=== PATIENT | female | born 1955 | race Caucasian/White ===

== ENCOUNTER 2016-08-26 13:38 | Emergency (ER) | payer OTHER ==
[~2016-08-26] VITALS: Wt 65.0 kg
[~2016-08-26 13:38] MED LIST: ASPI-535 PO; CLON-379 PO; GLIP-95 PO; LISI20TA11 PO; OCUVITE PO; TRAM50TA2 PO; ZINC220C10 PO; ZOC20 PO
[2016-08-26] MEDS ORDERED: AZIT250T94 PO (15:52)
[2016-08-26] MEDS ORDERED: IBUP-1542 PO (15:53)
[2016-08-26] MEDS ORDERED: ACET500C5 PO (15:53)
[2016-08-26] MEDS ORDERED: CETI10CA PO (15:53)
[2016-08-26] MEDS ORDERED: D-ME473S18 PO (15:57)
--- NOTE | 2016-08-26 16:01 | ERD ---
ER Documentation Chief Complaint Date/Time DATE: 08/26/16 TIME: 15:57 Chief Complaint sore throat with cough for the past few days. no sob noted. HPI This is a 61-year-old female who presents to the emergency department today complaining of cough, sore throat and phlegm for the past week. Patient states that she has pain with swallowing. Denies any fevers or chills. States she has taken Robitussin for the cough with no improvement in symptoms. ROS All systems reviewed and are negative except as per history of present illness. Medications Home Meds Active Scripts Dextromethorphan Hb-Promethazine Hcl (Promethazine DM Syrup) 473 Ml Syrup, 5 ML PO Q6H Y for COUGH, #4 OZ Prov:GINNA CONNOR PA-C 08/26/16 Acetaminophen* (Tylophen*) 500 Mg Capsule, 1 CAP PO Q6H Y for PAIN AND OR ELEVATED TEMP, #30 CAP Prov:GINNA CONNOR PA-C 08/26/16 Ibuprofen* (Motrin*) 600 Mg Tab, 600 MG PO Q6, #30 TAB Prov:GINNA CONNOR PA-C 08/26/16 Cetirizine Hcl* (Zyrtec*) 10 Mg Capsule, 10 MG PO DAILY, #14 TAB.CHEW Prov:GINNA CONNOR PA-C 08/26/16 Azithromycin* (Zithromax*) 250 Mg Tablet, 250 MG PO .ZPACK DIRECTED, #6 TAB TAKE 500 MG (2 TABS) THE FIRST DAY THEN 250 MG (1 TAB) DAYS 2-5 Prov:GINNA CONNOR PA-C 08/26/16 Clonidine Hcl* (Clonidine Hcl*) 0.1 Mg Tab, 0.1 MG PO TID, #20 Take one (1) tablet PO if systolic blood pressure >170mmHG no more then three times daily Prov:ENOC THOMAS 05/06/15 Zinc Sulfate* (Zinc Sulfate*) 220 ( 50 )Mg Capsule, 220 MG PO DAILY, #30 CAP Prov:ENOC THOMAS 05/06/15 Beta Carotene (A) W-C & E/Min* (Ocuvite*) 1 Tab Tab, 1 TAB PO DAILY, #30 TAB Prov:ENOC THOMAS 05/06/15 Tramadol HCl (Tramadol HCl) 50 Mg Tab, 50 MG PO Q4 Y for PAIN, #20 TAB Prov:MAURIZIO BLOUNT 03/13/15 Reported Medications Glipizide* (Glipizide*) 10 Mg Tablet, 10 MG PO QAM, TAB 05/06/15 Glipizide* (Glipizide*) 10 Mg Tablet, 10 MG PO DAILY, TAB 05/06/15 Simvastatin (Simvastatin) 20 Mg Tablet, 20 MG PO HS, TAB 01/17/14 Lisinopril* (Lisinopril*) 20 Mg Tablet, 20 MG PO DAILY, TAB 01/17/14 Aspirin Ec (Aspir 81) 81 Mg Tablet.dr, 81 MG PO 01/17/14 Allergies Allergies: Coded Allergies: No Known Allergy (Unverified , 03/13/15) PMhx/Soc History of Surgery: No Anesthesia Reaction: No Hx Neurological Disorder: No Hx Respiratory Disorders: No Hx Cardiac Disorders: Yes (HIGH CHOLESTEROL, HTN) Hx Psychiatric Problems: No Hx Miscellaneous Medical Probl: Yes (DM) Hx Alcohol Use: No Hx Substance Use: No Hx Tobacco Use: No Physical Exam Vitals Vital Signs Date Time Temp Pulse Resp B/P Pulse Ox O2 Delivery O2 Flow Rate FiO2 08/26/16 13:40 98.5 100 20 160/75 98 Physical Exam Const: No acute distress Head: Atraumatic Eyes: Normal Conjunctiva ENT: Ears TMs normal. Nose with mild clear drainage. Throat with erythema. No exudate. Petechiae soft palate. Neck: Full range of motion..~ No meningismus. Resp: Clear to auscultation bilaterally no absent breath sounds. No wheezing Cardio: Regular rate and rhythm, no murmurs Abd: Soft, non tender, non distended. Normal bowel sounds Skin: No petechiae or rashes Neur: Awake and alert Psych: Normal Mood and Affect Procedures/MDM This is a 7-year-old female presents to the emergency department today complaining of cough and sore throat for the past week. On physical exam patient had some petechiae on the posterior aspect of her pharynx and therefore did had some concern for possible strep pharyngitis although there is no tonsillar exudate patient is afebrile at this time. Lung exam is benign. I do not feel the patient requires a chest x-ray. Her oxygen saturation is 98% respirations are 20. Patient symptoms at this time is consistent with URI likely viral however given her throat exam I will give the patient a prescription for azithromycin to treat possible strep pharyngitis as well any possible bacterial infection in her lungs. Furthermore patient has multiple comorbidities therefore I feel that antibiotics are appropriate this time especially given the length and duration of her symptoms.. I have low suspicion for , peritonsillar abscess, retropharyngeal abscess, otitis media, , sinusitis, abscess, meningitis, sepsis, or other acute infectious bacterial process. Patient will be given a prescription for azithromycin, Phenergan, Tylenol, Motrin and Zyrtec. At this time the patient is stable for discharge and outpatient management. They should follow up with their PCP in the next 1-2. They may return to the emergency department sooner if symptoms persist or worsen. Patient understood and agreed with the plan. Departure Diagnosis: Primary Impression: URI (upper respiratory infection) URI type: unspecified URI Qualified Code: J06.9 - Upper respiratory tract infection, unspecified type Condition: Fair Patient Instructions: Self-Care for Sore Throats, Preventing Common Respiratory Infections Additional Instructions: Llame al doctor MAANA y malcolm nidia LAURA PARA DENTRO DE 1-2 SHERIDAN.Dgale a la secretaria que nosotros le instruimos hacer esta laura.Avise o llame si thorpe condicin se empeora antes de la laura. Regresa aqui si peor o no mejor. Take Tylenol or Motrin for pain or fever Take antibiotics as prescribed Take promethazine and Zyrtec for cough GINNA CONNOR PA-C Aug 26, 2016 16:01
== END 2016-08-26 16:11 | disposition home or self-care (01) ==
LOC: FTE 13:38
DX: J06.9 Acute upper respiratory infection, unspecified (principal); I10 Essential (primary) hypertension; E11.9 Type 2 diabetes mellitus without complications; Z79.84 Long term (current) use of oral hypoglycemic drugs; Z79.82 Long term (current) use of aspirin
CPT/HCPCS: 99284

== ENCOUNTER 2017-05-06 16:33 | Emergency (ER) | payer OTHER ==
[~2017-05-06] VITALS: Wt 53.2 kg
[~2017-05-06 16:33] MED LIST changes: +ACET500C5 PO; +AZIT250T94 PO; +CETI10CA PO; +D-ME473S18 PO; +IBUP-1542 PO; +SIMV20TA2 PO; -ZOC20 PO
[2017-05-06 16:35] VITALS: Wt 53.2 kg
[2017-05-06] MEDS ORDERED: SOD CHLORIDE 0.9% 1,000 ML IV STA (16:58)
[2017-05-06] MEDS ORDERED: ONDANSETRON 4 MG INJ IV STA (16:58)
[2017-05-06] MEDS ORDERED: morphine 4 MG/ML VIAL IV STA (16:58)
[2017-05-06 17:52] VITALS: BP 188/82; PULSE 89; RESP 18
--- NOTE | 2017-05-06 18:33 | RADRPT ---
PROCEDURE: CT Abdomen and Pelvis without contrast. CLINICAL INDICATION: Abdominal and pelvic pain. Left flank pain. TECHNIQUE: CT scan of the abdomen and pelvis without contrast was performed. Coronal and sagittal reformatted images were obtained from the axial source images. Images were reviewed on a [employer] PACS workstation. Total exam DLP is 369.66 mGy-cm. CTDIvol is 7.61 mGy. One or more of the fo llowing dose reduction techniques were used: Automated exposure control, adjustment of the mA and/or kV according to patient size, use of iterative reconstruction technique. COMPARISON: None. FINDINGS: The lung bases are normal. There is no pleural effusion. The liver is normal in size and attenuation. There is no focal hepatic lesion. The gallbladder and bile ducts are normal. The spleen is normal in size. There is no focal splenic lesion. Both adrenals are normal with no enlargement or mass. The pancreas is unremarkable with no mass or evidence of pancreatitis. The right kidney is markedly atrophic measuring 1.0 x 1.7 x 4.0 cm. The left kidney measures 12.2 cm in length. There is moderate left hydroureteronephrosis with no obstructing lesion visualized. The left kidney is otherwise normal with no mass or calculus. The abdominal aorta is not dilated. There is calcification in the aorta consistent with atherosclero sis. There is no retroperitoneal lymphadenopathy or mass. There is no pelvic lymphadenopathy or mass. The bladder is distended measuring approximately 500 ml. The distal ureters are otherwise normal. The periappendiceal region is unremarkable with no evidence of appendicitis. The bowel and mesentery are normal. There is no free fluid or free gas. There is mild degenerative change of the spine. The osseous structures are otherwise unremarkable wi th no fracture or lytic lesion. IMPRESSION: 1. Markedly atrophic right kidney, likely congenital. 2. Moderate left hydroureteronephrosis with no obstructing lesion visualized. 3. Atherosclerosis. 4. Distended urinary bladder measuring approximately 500 ml. 5. Mild degenerative changes of the spine. 6. Otherwise unremarkable CT scan of the abdomen and pelvis. Call report: A call report of the findings was made to Dr. Mirza on 05/06/2017 at 1830 hours. RPTAT: QQ .Siddhartha Larson MD, MD Date Time Electronically viewed and signed by .Siddhartha Larson MD, on 05/06/2017 18:33 .R/
[2017-05-06] MEDS ORDERED: HYDR-906 PO (18:36)
[2017-05-06] MEDS ORDERED: ONDA4TAB14 PO (18:36)
[2017-05-06] MEDS ORDERED: NICARDipine HCL 30 MG CAPSULE PO ONE (19:00)
--- NOTE | 2017-05-06 20:46 | ERD ---
ER Documentation Chief Complaint Chief Complaint L. FLANK PAIN HPI Patient is a 62-year-old female with hypertension, diabetes, and high cholesterol who presents with left-sided abdominal pain. The patient has had 2 weeks of left-sided flank pain and abdominal pain. The pain is constant. She has no fevers. She had pain with urination. She has had no treatment as of yet. Upon review of old medical records this is the patient's eighth visit to the ER since 2013. She does have a primary doctor. ROS All systems reviewed and are negative except as per history of present illness. Medications Home Meds Active Scripts Ondansetron (Ondansetron Odt) 4 Mg Tab.rapdis, 4 MG PO Q6H Y for NAUSEA AND/OR VOMITING, #10 TAB Prov:TODD WIN MD 05/06/17 Hydrocodone/Acetaminophen ([place] 5-325 Tablet) 1 Each Tablet, 1 TAB PO Q6H Y for PAIN, #7 TAB Prov:TODD WIN MD 05/06/17 Dextromethorphan Hb-Promethazine Hcl (Promethazine DM Syrup) 473 Ml Syrup, 5 ML PO Q6H Y for COUGH, #4 OZ Prov:GINNA CONNOR PA-C 08/26/16 Acetaminophen* (Tylophen*) 500 Mg Capsule, 1 CAP PO Q6H Y for PAIN AND OR ELEVATED TEMP, #30 CAP Prov:GINNA CONNOR PA-C 08/26/16 Ibuprofen* (Motrin*) 600 Mg Tab, 600 MG PO Q6, #30 TAB Prov:GINNA CONNOR PA-C 08/26/16 Cetirizine Hcl* (Zyrtec*) 10 Mg Capsule, 10 MG PO DAILY, #14 TAB.CHEW Prov:GINNA CONNOR PA-C 08/26/16 Azithromycin* (Zithromax*) 250 Mg Tablet, 250 MG PO .THEODORE DIRECTED, #6 TAB TAKE 500 MG (2 TABS) THE FIRST DAY THEN 250 MG (1 TAB) DAYS 2-5 Prov:GINNA CONNORC 08/26/16 Clonidine Hcl* (Clonidine Hcl*) 0.1 Mg Tab, 0.1 MG PO TID, #20 Take one (1) tablet PO if systolic blood pressure >170mmHG no more then three times daily Prov:ENOC THOMAS 05/06/15 Zinc Sulfate* (Zinc Sulfate*) 220 ( 50 )Mg Capsule, 220 MG PO DAILY, #30 CAP Prov:ENOC THOMAS 05/06/15 Beta Carotene (A) W-C & E/Min* (Ocuvite*) 1 Tab Tab, 1 TAB PO DAILY, #30 TAB Prov:ENOC THOMAS 05/06/15 Tramadol HCl (Tramadol HCl) 50 Mg Tab, 50 MG PO Q4 Y for PAIN, #20 TAB Prov:MAURIZIO BLOUNT 03/13/15 Reported Medications Glipizide* (Glipizide*) 10 Mg Tablet, 10 MG PO QAM, TAB 05/06/15 Glipizide* (Glipizide*) 10 Mg Tablet, 10 MG PO DAILY, TAB 05/06/15 Simvastatin (Simvastatin) 20 Mg Tablet, 20 MG PO HS, TAB 01/17/14 Lisinopril* (Lisinopril*) 20 Mg Tablet, 20 MG PO DAILY, TAB 01/17/14 Aspirin Ec (Aspir 81) 81 Mg Tablet.dr, 81 MG PO 01/17/14 Allergies Allergies: Coded Allergies: No Known Allergy (Unverified , 03/13/15) PMhx/Soc History of Surgery: No Anesthesia Reaction: No Hx Neurological Disorder: No Hx Respiratory Disorders: No Hx Cardiac Disorders: Yes (HIGH CHOLESTEROL, HTN) Hx Psychiatric Problems: No Hx Miscellaneous Medical Probl: Yes (DM ) Hx Alcohol Use: No Hx Substance Use: No Hx Tobacco Use: No Smoking Status: Never smoker FmHx Family History: diabetes Physical Exam Vitals Vital Signs Date Time Temp Pulse Resp B/P Pulse Ox O2 Delivery O2 Flow Rate FiO2 05/06/17 17:52 89 18 188/82 99 Room Air 05/06/17 16:35 98.2 82 20 201/88 98 Physical Exam Const: Moderate distress secondary to pain Head: Atraumatic Eyes: Normal Conjunctiva ENT: Normal External Ears, Nose and Mouth. Neck: Full range of motion..~ No meningismus. Resp: Clear to auscultation bilaterally Cardio: Regular rate and rhythm, no murmurs Abd: Soft, non tender, non distended. Normal bowel sounds Skin: No petechiae or rashes Back: No midline or flank tenderness Ext: No cyanosis, or edema Neur: Awake and alert Psych: Normal Mood and Affect Result Diagram: 05/06/17171405/06/171714 Results 24 hrs Laboratory Tests Test 05/06/17 17:15 White Blood Count 6.910^3/ul Red Blood Count 4.1210^6/ul Hemoglobin 12.5g/dl Hematocrit 37.2% Mean Corpuscular Volume 90.3fl Mean Corpuscular Hemoglobin 30.3pg Mean Corpuscular Hemoglobin Concent 33.6g/dl Red Cell Distribution Width 12.5% Platelet Count 74599^3/UL Mean Platelet Volume 10.9fl Neutrophils % 54.7% Lymphocytes % 35.3% Monocytes % 7.7% Eosinophils % 1.7% Basophils % 0.3% Nucleated Red Blood Cells % 0.0/100WBC Neutrophils # 3.810^3/ul Lymphocytes # 2.410^3/ul Monocytes # 0.510^3/ul Eosinophils # 0.110^3/ul Basophils # 0.010^3/ul Nucleated Red Blood Cells # 0.010^3/ul Urine Color COLORLESS Urine Clarity CLEAR Urine pH 8.0 Urine Specific Petros 1.003 Urine Ketones NEGATIVEmg/dL Urine Nitrite NEGATIVEmg/dL Urine Bilirubin NEGATIVEmg/dL Urine Urobilinogen NEGATIVEmg/dL Urine Leukocyte Esterase TRACELeu/ul Urine Microscopic RBC 0/HPF Urine Microscopic WBC 2/HPF Urine Hemoglobin NEGATIVEmg/dL Urine Glucose NEGATIVEmg/dL Urine Total Protein NEGATIVEmg/dl Sodium Level 140mmol/L Potassium Level 4.0mmol/L Chloride Level 102mmol/L Carbon Dioxide Level 28mmol/L Anion Gap 14 Blood Urea Nitrogen 14mg/dl Creatinine 0.61mg/dl Glucose Level 89mg/dl Calcium Level 9.7mg/dl Total Bilirubin 0.1mg/dl Direct Bilirubin 0.00mg/dl Indirect Bilirubin 0.1mg/dl Aspartate Amino Transf (AST/SGOT) 25IU/L Alanine Aminotransferase (ALT/SGPT) 32IU/L Alkaline Phosphatase 120IU/L Total Protein 7.8g/dl Albumin 4.5g/dl Globulin 3.30g/dl Albumin/Globulin Ratio 1.36 Lipase 71U/L Current Medications Medications (Trade) Dose Ordered Sig/Dano Route PRN Reason Start Time Stop Time Status Last Admin Dose Admin Sodium Chloride (NS) 1,000 ml @ 1,000 mls/hr Q1H STAT IV 05/06/17 16:58 05/06/17 17:57 DC 05/06/17 17:11 Morphine Sulfate (morphine) 4 mg ONCE STAT IV 05/06/17 16:58 05/06/17 16:59 DC 05/06/17 17:11 Ondansetron HCl (Zofran Inj) 4 mg ONCE STAT IV 05/06/17 16:58 05/06/17 16:59 DC 05/06/17 17:11 Nicardipine HCl (Cardene) 30 mg ONCE ONCE PO 05/06/17 19:00 05/06/17 19:01 DC 05/06/17 18:53 Procedures/MDM CT abdomen pelvis shows enlarged bladder with approximately 500 mL of urine per radiology. Patient is a 62-year-old female who presents with abdominal pain and flank pain. She has no sign of kidney stone or bowel obstruction on CT scan however she does have a enlarged bladder which is likely the cause of her symptoms. Urinalysis shows no signs of infection. I doubt kidney stone or bowel obstruction. Patient feels better after a Garcia catheter was placed. The Garcia catheter will be placed to a leg bag and she will need to follow-up with her primary doctor within 24-48 hours for removal. She can return sooner for any worsening symptoms. The patient understands the plan and is okay for discharge at this time. She was given copies of the laboratory studies and CT scan results prior to discharge. Departure Diagnosis: Primary Impression: Urinary retention Additional Impression: Flank pain Condition: Fair Patient Instructions: Flank Pain, Uncertain Cause, Urinary Retention, Female Referrals: Your doctor Additional Instructions: Llame al doctor MAANA y malcolm nidia LAURA PARA DENTRO DE 1-2 SHERIDAN.Dgale a la secretaria que nosotros le instruimos hacer esta laura.Avise o llame si thorpe condicin se empeora antes de la laura. Regresa aqui si peor o no mejor. TODD WIN MD May 06, 2017 20:46
== END 2017-05-06 19:04 | disposition home or self-care (01) ==
LOC: E/R 16:33
DX: R33.9 Retention of urine, unspecified (principal); I10 Essential (primary) hypertension; E11.9 Type 2 diabetes mellitus without complications; Z79.84 Long term (current) use of oral hypoglycemic drugs; Z79.82 Long term (current) use of aspirin
CPT/HCPCS: 36415; 74176; 80053; 81001; 83690; 85025; 96374; 96375; J2270; J2405; J7030; Z7502; Z7610

== ENCOUNTER 2017-05-11 08:48 | Emergency (ER) | payer OTHER ==
[~2017-05-11] VITALS: Wt 51.8 kg
[~2017-05-11 08:48] MED LIST changes: +HYDR-906 PO; +ONDA4TAB14 PO
[2017-05-11 08:51] VITALS: Wt 51.8 kg
--- NOTE | 2017-05-27 18:49 | ERD ---
ER Documentation Chief Complaint Chief Complaint indwelling fc discomfort HPI This is a 62-year-old female here for Garcia catheter removal. Patient says she has a Garcia catheter placed 3 days ago and is feeling uncomfortable and she wants it removed. She says the catheter was placed because she was having some difficulty urinating but no infection. The patient says she has no abdominal pain she is not voiding around the catheter. No blood in the catheter bag. She would like to have it removed at this point ROS All systems reviewed and are negative except as per history of present illness. Medications Home Meds Active Scripts Ondansetron (Ondansetron Odt) 4 Mg Tab.rapdis, 4 MG PO Q6H Y for NAUSEA AND/OR VOMITING, #10 TAB Prov:TODD WIN MD 05/06/17 Hydrocodone/Acetaminophen ([place] 5-325 Tablet) 1 Each Tablet, 1 TAB PO Q6H Y for PAIN, #7 TAB Prov:TODD WIN MD 05/06/17 Dextromethorphan Hb-Promethazine Hcl (Promethazine DM Syrup) 473 Ml Syrup, 5 ML PO Q6H Y for COUGH, #4 OZ Prov:GINNA CONNOR PA-C 08/26/16 Acetaminophen* (Tylophen*) 500 Mg Capsule, 1 CAP PO Q6H Y for PAIN AND OR ELEVATED TEMP, #30 CAP Prov:GINNA CONNOR PA-C 08/26/16 Ibuprofen* (Motrin*) 600 Mg Tab, 600 MG PO Q6, #30 TAB Prov:GINNA CONNOR PA-C 08/26/16 Cetirizine Hcl* (Zyrtec*) 10 Mg Capsule, 10 MG PO DAILY, #14 TAB.CHEW Prov:GINNA CONNOR PA-C 08/26/16 Azithromycin* (Zithromax*) 250 Mg Tablet, 250 MG PO .THEODORE DIRECTED, #6 TAB TAKE 500 MG (2 TABS) THE FIRST DAY THEN 250 MG (1 TAB) DAYS 2-5 Prov:GINNA CONNORC 08/26/16 Clonidine Hcl* (Clonidine Hcl*) 0.1 Mg Tab, 0.1 MG PO TID, #20 Take one (1) tablet PO if systolic blood pressure >170mmHG no more then three times daily Prov:ENOC THOMAS 05/06/15 Zinc Sulfate* (Zinc Sulfate*) 220 ( 50 )Mg Capsule, 220 MG PO DAILY, #30 CAP Prov:ENOC THOMAS 05/06/15 Beta Carotene (A) W-C & E/Min* (Ocuvite*) 1 Tab Tab, 1 TAB PO DAILY, #30 TAB Prov:ENOC THOMAS 05/06/15 Tramadol HCl (Tramadol HCl) 50 Mg Tab, 50 MG PO Q4 Y for PAIN, #20 TAB Prov:MAURIZIO BLOUNT 03/13/15 Reported Medications Glipizide* (Glipizide*) 10 Mg Tablet, 10 MG PO QAM, TAB 05/06/15 Glipizide* (Glipizide*) 10 Mg Tablet, 10 MG PO DAILY, TAB 05/06/15 Simvastatin (Simvastatin) 20 Mg Tablet, 20 MG PO HS, TAB 01/17/14 Lisinopril* (Lisinopril*) 20 Mg Tablet, 20 MG PO DAILY, TAB 01/17/14 Aspirin Ec (Aspir 81) 81 Mg Tablet.dr, 81 MG PO 01/17/14 Allergies Allergies: Coded Allergies: No Known Allergy (Unverified , 03/13/15) PMhx/Soc History of Surgery: No Anesthesia Reaction: No Hx Neurological Disorder: No Hx Respiratory Disorders: No Hx Cardiac Disorders: Yes (HIGH CHOLESTEROL, HTN) Hx Psychiatric Problems: No Hx Miscellaneous Medical Probl: Yes (DM,urine retention) Hx Alcohol Use: No Hx Substance Use: No Hx Tobacco Use: No FmHx Family History: No coronary disease Physical Exam Physical Exam Const: Well-developed, well-nourished Head: Atraumatic, normocephalic Eyes: Normal Conjunctiva, PERRLA, EOMI, normal sclera, no nystagmus ENT: Normal External Ears, Nose and Mouth, moist mucus membranes. Neck: Full range of motion. No meningismus, no lymphadenopathy. Resp: Clear to auscultation bilaterally, no wheezing, rhonchi, rales Cardio: Regular rate and rhythm, no murmurs, S1 S2 present Abd: Soft, non tender x 4, non distended. Normal bowel sounds, no guarding or rebound, no pulsitile abdominal masses or bruits, Garcia catheter intact with leg bag Skin: No petechiae or rashes, no ecchymosis , no maculopapular rash Back: No midline or flank tenderness Ext: No cyanosis, or edema, FROM x 4, normal inspection, neurovascularly intact x 4 Neur: Awake and alert, STR 5/5 x 4, sensation intact x 4, no focal findings, cerebellum intact Psych: Normal Mood and Affect Procedures/MDM We will remove Garcia catheter. Told signs and symptoms to return to watch for for urinary retention Departure Diagnosis: Primary Impression: Encounter for Garcia catheter removal Condition: Stable Patient Instructions: Garcia Catheter Removal ETHEL OBRIEN DO May 27, 2017 18:48
== END 2017-05-11 10:37 | disposition home or self-care (01) ==
LOC: FTE 08:48
DX: Z46.6 Encounter for fitting and adjustment of urinary device (principal); I10 Essential (primary) hypertension; E11.9 Type 2 diabetes mellitus without complications; Z79.82 Long term (current) use of aspirin; Z79.84 Long term (current) use of oral hypoglycemic drugs
CPT/HCPCS: 99283

== ENCOUNTER 2017-07-26 08:47 | Emergency (ER) | END 2017-07-26 13:55 | disposition home or self-care (01) ==

== ENCOUNTER 2017-12-04 21:00 | Emergency (ER) | END 2017-12-05 02:35 | disposition home or self-care (01) ==

== ENCOUNTER 2018-07-19 15:01 | Emergency (ER) | payer OTHER ==
[~2018-07-19] VITALS: Ht 167.6 cm; Wt 53.9 kg
[~2018-07-19 15:01] MED LIST changes: +AZIT250T PO; -AZIT250T94 PO; +BENZ-6 PO; -GLIP-95 PO; +GLIP10TA14 PO; +HYDR-4011 PO; -HYDR-906 PO; +LISI-471 PO; -LISI20TA11 PO; +NAPR-985 PO
[2018-07-19 15:27] VITALS: Ht 167.6 cm; Wt 53.9 kg
[2018-07-19] MEDS ORDERED: NPH10OT RIGHT EAR (16:48)
[2018-07-19] MEDS ORDERED: CARB15DR50 RIGHT EAR (16:48)
[2018-07-19 16:51] VITALS: BP 242/105; PULSE 97; RESP 20
[2018-07-19] MEDS ORDERED: NICARDipine HCL 30 MG CAPSULE PO ONE (17:00)
--- NOTE | 2018-07-19 18:47 | ERD ---
ER Documentation Chief Complaint Chief Complaint Complains of bilateral ear pain and elevated BP Hx of HTN HPI Patient is a 63-year-old female who presents saying "my right ear is clogged". She says that she has had this feeling for the past 3 days. She denies pain or fever. She tried some type of drop but she does not know what it was. ROS All systems reviewed and are negative except as per history of present illness. Medications Home Meds Active Scripts Carbamide Peroxide* (Debrox*) 6.5% - 15 Ml Drops, 10 DROP RIGHT EAR BID, #1 BOTTLE Prov:TODD WIN MD 07/19/18 Neomycin/Polymyxin/Hydrocort* (Cortisporin* Otic) 10 Ml Susp, 4 DROP RIGHT EAR QID for 7 Days, EA Prov:TODD WIN MD 07/19/18 Benzonatate* (Tessalon Perle*) 100 Mg Capsule, 100 MG PO Q8H PRN for COUGH, #20 CAP Prov:GUADALUPE PALMER PA-C 12/05/17 Cetirizine Hcl* (Zyrtec*) 10 Mg Capsule, 10 MG PO DAILY, #30 TAB.CHEW Prov:GUADALUPE PALMER PA-C 12/05/17 Azithromycin* (Zithromax*) 250 Mg Tablet, 250 MG PO .AngelPACK DIRECTED, #6 TAB TAKE 500 MG (2 TABS) THE FIRST DAY THEN 250 MG (1 TAB) DAYS 2-5 Prov:GUADALUPE PALMER PA-C 12/05/17 Naproxen* (Naprosyn*) 500 Mg Tablet, 500 MG PO BID PRN for PAIN AND/OR INFLAMMATION, #30 TAB Prov:JOSEPH TREJO 07/26/17 Ondansetron (Ondansetron Odt) 4 Mg Tab.rapdis, 4 MG PO Q6H PRN for NAUSEA AND/OR VOMITING, #10 TAB Prov:TODD WIN MD 05/06/17 Hydrocodone/Acetaminophen ([place] 5-325 Tablet) 1 Each Tablet, 1 TAB PO Q6H PRN for PAIN, #7 TAB Prov:TODD WIN MD 05/06/17 Dextromethorphan Hb-Promethazine Hcl (Promethazine DM Syrup) 473 Ml Syrup, 5 ML PO Q6H PRN for COUGH, #4 OZ Prov:GINNA CONNOR PA-C 08/26/16 Acetaminophen* (Tylophen*) 500 Mg Capsule, 1 CAP PO Q6H PRN for PAIN AND OR E LEVATED TEMP, #30 CAP Prov:GINNA CONNOR PA-C 08/26/16 Ibuprofen* (Motrin*) 600 Mg Tab, 600 MG PO Q6, #30 TAB Prov:GINNA CONNOR PA-C 08/26/16 Cetirizine Hcl* (Zyrtec*) 10 Mg Capsule, 10 MG PO DAILY, #14 TAB.CHEW Prov:GINNA CONNOR PA-C 08/26/16 Azithromycin* (Zithromax*) 250 Mg Tablet, 250 MG PO .ZPACK DIRECTED, #6 TAB TAKE 500 MG (2 TABS) THE FIRST DAY THEN 250 MG (1 TAB) DAYS 2-5 Prov:GINNA CONNOR PA-C 08/26/16 Clonidine Hcl* (Clonidine Hcl*) 0.1 Mg Tab, 0.1 MG PO TID, #20 Take one (1) tablet PO if systolic blood pressure >170mmHG no more then three times daily Prov:ENOC THOMAS MD 05/06/15 Zinc Sulfate* (Zinc Sulfate*) 220 ( 50 )Mg Capsule, 220 MG PO DAILY, #30 CAP Prov:ENOC THOMAS MD 05/06/15 Beta Carotene (A) W-C & E/Min* (Ocuvite*) 1 Tab Tab, 1 TAB PO DAILY, #30 TAB Prov:ENOC THOMAS MD 05/06/15 Tramadol HCl (Tramadol HCl) 50 Mg Tab, 50 MG PO Q4 PRN for PAIN, #20 TAB Prov:MAURIZIO BLOUNT 03/13/15 Reported Medications Glipizide* (Glipizide*) 10 Mg Tablet, 10 MG PO QAM, TAB 05/06/15 Glipizide* (Glipizide*) 10 Mg Tablet, 10 MG PO DAILY, TAB 05/06/15 Simvastatin (Simvastatin) 20 Mg Tablet, 20 MG PO HS, TAB 7/22/14 Lisinopril* (Lisinopril*) 20 Mg Tablet, 20 MG PO DAILY, TAB 01/17/14 Aspirin Ec (Aspir 81) 81 Mg Tablet.dr, 81 MG PO 01/17/14 Allergies Allergies: Coded Allergies: No Known Allergy (Unverified , 12/05/17) PMhx/Soc History of Surgery: No Anesthesia Reaction: No Hx Neurological Disorder: No Hx Respiratory Disorders: No Hx Cardiac Disorders: Yes (HIGH CHOLESTEROL, HTN) Hx Psychiatric Problems: No Hx Miscellaneous Medical Probl: Yes (DM,urine retention) Hx Alcohol Use: No Hx Substance Use: No Hx Tobacco Use: No Smoking Status: Never smoker FmHx Family History: No diabetes Physical Exam Vitals Vital Signs Date Temp Pulse Resp B/P (MAP) Pulse Ox O2 O2 Flow FiO2 Time Delivery Rate 07/19/18 98.0 97 20 242/105 99 Room Air 16:51 (150) 07/19/18 98.0 95 20 250/112 98 15:27 (158) Physical Exam Const: No acute distress Head: Atraumatic Eyes: Normal Conjunctiva ENT: Cerumen obscures the right side ear canal and tympanic membrane, left tympanic membrane is normal Neck: Full range of motion. No meningismus. Resp: Clear to auscultation bilaterally Cardio: Regular rate and rhythm, no murmurs Abd: Soft, non tender, non distended. Normal bowel sounds Skin: No petechiae or rashes Back: No midline or flank tenderness Ext: No cyanosis, or edema Neur: Awake and alert Psych: Normal Mood and Affect Results 24 hrs Current Medications Medications Dose Sig/Dano Start Time Status Last (Trade) Ordered Route PRN Stop Time Admin Dose Reason Admin Nicardipine 30 mg ONCE ONCE 07/19/18 DC 07/19/18 HCl PO 17:00 16:50 (Cardene) 07/19/18 17:00 Procedures/MDM Patient is a 63-year-old female who presents with right-sided cerumen impaction. The patient will be given a prescription for Debrox solution and Cortisporin otic drops. She will be discharged. I believe outpatient management is appropriate at this time. She does not need further workup or admission to the hospital at this time. The patient has elevated blood pressure as well but has no symptoms of this. She was given Cardene in the emergency department. She should follow-up with her primary doctor for blood pressure recheck and further blood pressure management. Departure Diagnosis: Primary Impression: Excessive cerumen in right ear canal Additional Impression: Hypertension Hypertension type: essential hypertension Qualified Codes: I10 - Essential (primary) hypertension Condition: Fair Patient Instructions: High Blood Pressure (Hypertension), Ear Wax, Treated Referrals: Your doctor Additional Instructions: Call your primary care doctor TOMORROW for an appointment during the next 1-2 days.See the doctor sooner or return here if your condition worsens before your appointment time. TODD WIN MD Jul 19, 2018 18:46
== END 2018-07-19 16:53 | disposition home or self-care (01) ==
LOC: E/R 15:01
DX: H61.21 Impacted cerumen, right ear (principal); I10 Essential (primary) hypertension; E11.9 Type 2 diabetes mellitus without complications; Z79.82 Long term (current) use of aspirin; Z79.84 Long term (current) use of oral hypoglycemic drugs
CPT/HCPCS: Z7502; Z7610; 99283